=== PATIENT | female | born 1985 | race African-American/Black ===

== ENCOUNTER 2025-06-25 06:08 | Inpatient (IN) | payer OTHER ==
[2025-06-25] MEDS ORDERED: PHENAZOPYRIDINE HCL 100 MG TABLET (FP) ONE (08:51)
[2025-06-25] MEDS ORDERED: GABAPENTIN 300 MG CAPSULE ONE (08:51)
[2025-06-25] MEDS: PHENAZOPYRIDINE HCL 100 MG TABLET (FP) PO ONE (08:54)
[2025-06-25] MEDS: GABAPENTIN 300 MG CAPSULE PO ONE (08:55)
[2025-06-25] MEDS ORDERED: HEPARIN NA (PORCINE) 5,000 UNITS/ML 1ML VIAL ONE (10:08)
[2025-06-25] MEDS ORDERED: PROPOFOL 20 ML ONE ×2 (10:50→13:18)
[2025-06-25] MEDS ORDERED: MIDAZOLAM HCL 2 MG/2 ML SINGLE DOSE VIAL ONE (10:51)
[2025-06-25] MEDS ORDERED: ROCURONIUM BROMIDE 50 MG/5 ML SYRINGE ONE ×2 (11:29→12:59)
[2025-06-25] MEDS ORDERED: ONDANSETRON 4 MG/2 ML VIAL ONE (13:06)
[2025-06-25] MEDS ORDERED: KETOROLAC TROMETHAMINE 30 MG/1 ML VIAL ONE (13:08)
[2025-06-25] MEDS ORDERED: SUGAMMADEX SODIUM 200 MG/2 ML VIAL ONE (13:10)
[2025-06-25] MEDS ORDERED: DOCUSATE SODIUM 100 MG CAPSULE (FP) PO PRN (13:47)
[2025-06-25] MEDS ORDERED: BISACODYL 5 MG TABLET.DR (FP) PO PRN (13:47)
[2025-06-25] MEDS ORDERED: SIMETHICONE 80 MG TAB.CHEW (FP) PO PRN (13:47)
[2025-06-25] MEDS ORDERED: ONDANSETRON 4 MG/2 ML VIAL IVPUSH PRN (13:49)
[2025-06-25] MEDS ORDERED: PROMETHAZINE HCL 25 MG/1 ML VIAL IVPB PRN (13:49)
[2025-06-25] MEDS ORDERED: LACTATED RINGERS SOLUTION 1,000 ML IV SCH (14:00)
[2025-06-25] MEDS: ACETAMINOPHEN 1000 MG/100 ML BAG IVPB SCH (14:14)
[2025-06-25] MEDS ORDERED: ACETAMINOPHEN 1000 MG/100 ML BAG IVPB SCH (16:00)
[2025-06-25 16:19] VITALS: RESP 16
[2025-06-25] MEDS: LACTATED RINGERS SOLUTION 1,000 ML/1,000 ML INFUS.BAG IV SCH (16:19)
[2025-06-25] MEDS: CEFAZOLIN 2 GM/D5W 2 GM/50 ML ML IVPB ONE (17:13)
[2025-06-25] MEDS: TRANEXAMIC ACID 1000 MG/10 ML VIAL IVPUSH ONE (17:13)
[2025-06-25] MEDS: ACETAMINOPHEN 1000 MG/100 ML BAG IVPB ONE (17:13)
[2025-06-25] MEDS: ONDANSETRON 4 MG/2 ML VIAL IVPUSH PRN (17:27)
[2025-06-25] MEDS ORDERED: CEFAZOLIN 1 GM/D5W 1 GM/50 ML BAG IVPB SCH (18:00)
[2025-06-25] MEDS ORDERED: ZOLPIDEM TARTRATE 5 MG TABLET PO PRN (18:57)
[2025-06-25 19:20] LABS: MCHC 32.1 g/dl (32.2-35.5); MEAN CELL VOLUME 90.1 fl (79.4-94.8); MEAN PLT VOLUME 12.2 fl (9.4-12.3); RDW 12.6 % (12.1-16.8)
[2025-06-25 19:49] LABS: CO2 25.0 mmol/L (21-32)
[2025-06-25 19:50] LABS: GLUCOSE,RANDOM 143.0 mg/dL (74-106)
[2025-06-25 19:53] LABS: CREATININE 0.7 mg/dL (0.55-1.3)
[2025-06-25] MEDS: CEFAZOLIN 1 GM in DEXTROSE 5%-WATER - 50 ML IVPB SCH (20:25)
[2025-06-25] MEDS: IBUPROFEN 800 MG/8 ML IJ IVPB SCH (21:09)
[2025-06-26 06:14] VITALS: PULSE 86
[2025-06-26 07:47] LABS: MCHC 32.6 g/dl (32.2-35.5); MEAN CELL VOLUME 89.5 fl (79.4-94.8); MEAN PLT VOLUME 12.4 fl (9.4-12.3); RDW 12.5 % (12.1-16.8)
[2025-06-26 07:59] LABS: CO2 26.0 mmol/L (21-32)
[2025-06-26 08:00] LABS: GLUCOSE,RANDOM 92.0 mg/dL (74-106)
[2025-06-26 08:03] LABS: CREATININE 0.7 mg/dL (0.55-1.3)
[2025-06-26] MEDS: ENOXAPARIN NA (PORCINE) 40 MG/0.4 ML DISP.SYRIN SQ SCH (10:41)
[2025-06-26 12:31] VITALS: BP 121/76; TEMP 98.1
[2025-06-26] MEDS ORDERED: IBUPROFEN 600 MG TABLET (FP) PO SCH (13:00)
[2025-06-26] MEDS ORDERED: ACETAMINOPHEN 500 MG TABLET (FP) PO SCH (16:00)
== END 2025-06-26 12:15 | disposition home or self-care (01) | DRG 743 ==
LOC: JASUSAT 06:08 → EDSTATUS 07:45 → J2C 13:47 → J3W 16:19
PROVIDERS: ADMIT Obstetrics & Gynecology; ATTEND Obstetrics & Gynecology
PROC: 0DNW0ZZ Release Peritoneum, Open Approach (ICD-10-PCS; 2025-06-25)
PROC: 0UB90ZZ Excision of Uterus, Open Approach (ICD-10-PCS; 2025-06-25)
PROC: 0UB90ZZ Excision of Uterus, Open Approach (ICD-10-PCS; principal; 2025-06-25 11:00)
DX: D25.9 Leiomyoma of uterus, unspecified (principal); D25.1 Intramural leiomyoma of uterus; D25.2 Subserosal leiomyoma of uterus; K66.0 Peritoneal adhesions (postprocedural) (postinfection)
CPT/HCPCS: 36415; 80048; 81025; 85027; 86850; 86900; 86901; 88305-TC; 94760